=== PATIENT | male | born 1995 | race African-American/Black ===

== ENCOUNTER 2025-04-07 08:04 | Emergency (ER) | payer OTHER, SELFPAY ==
--- NOTE | 2025-04-07 08:08 | ED_ITS ---
HPI - Wound/Laceration General Chief Complaint: Wound/Laceration Stated Complaint: FINGER LACERATION Time Seen by Provider: 04/07/25 08:08 Source: patient Mode of arrival: ambulatory Limitations: no limitations History of Present Illness HPI narrative: Gennaro is a 29-year-old male patient presenting to the clinic today with complaints of a finger laceration. He reports he cut his finger with a knife last night around 8:00 p.m. when cooking dinner. States he cut through the left index finger fingernail. Bleeding is controlled. He applied Band-Aid and antibiotic ointment last night. Tetanus is unknown. Related Data Allergies Allergy/AdvReac Type Severity Reaction Status Date / Time No Known Allergies Allergy Verified 04/07/25 08:14 Review of Systems Review of Systems: Pertinent positives per HPI. Patient denies any fever, chills, rash, headache, visual changes, dizziness, cough, runny nose, sore throat, shortness of breath, chest pain, palpitations, nausea, vomiting, diarrhea, constipation, abdominal pain, or any urinary issues. PMFSH Comments At the time of my signature, I reviewed and agree with the nursing past medical, surgical, social, and family history. There is no relevant family history pertinent to the patient complaint. Exam Narrative: General: Well-developed, well nourished, in no apparent distress Head: Normocephalic, atraumatic. Cardio: Regular rate and rhythm, s1 and s2 normal, no murmur appreciated. Resp: Clear to auscultation bilaterally, no rhonchi, rales, wheezing or rubs. Integumentary: [place], warm, and dry, fingernail laceration/partial avulsion to the left index finger, bleeding controlled. No skin tissue appears to be cut, small amount of bleeding under the nail Course Course Emergency Course: Portions of this record may have been created with voice recognition software. Level of Care: Express Care Visit Vital Signs Vital signs: Vital Signs Temperature 36.4 C 04/07/25 08:15 Pulse Rate 83 04/07/25 08:15 Respiratory Rate 18 04/07/25 08:15 Blood Pressure 117/78 04/07/25 08:15 Pulse Oximetry 100 04/07/25 08:15 Temperature 36.4 C 04/07/25 08:15 Pulse Rate 83 04/07/25 08:15 Respiratory Rate 18 04/07/25 08:15 Blood Pressure 117/78 04/07/25 08:15 Pulse Oximetry 100 04/07/25 08:15 Vital signs reviewed MDM - Wound/Laceration MDM Narrative Medical decision making narrative: At the time of visit patient is resting comfortably on the exam table. Patient appears to be nontoxic. Complaints of a finger laceration. He reports he cut his finger with a knife last night around 8:00 p.m. when cooking dinner. States he cut through the left index finger fingernail. Bleeding is controlled. He applied Band-Aid and antibiotic ointment last night. Tetanus is unknown. Fingernail laceration/partial avulsion to the left index finger, bleeding controlled. No skin tissue appears to be cut, small amount of bleeding under the nail Plan: I suspect patient has a partial nail avulsion/laceration to the nail of the left index finger. This occurred over 12 hours ago. Sutures not recommended at this time. Recommend keeping the wound clean and dry and leaving the nail in place until it falls off on its own. Watch for signs and symptoms of infection. Supportive measures were discussed with the patient and they v oiced understanding discharge instructions and agrees to treatment plan. Return precautions reviewed Differential Diagnosis Differential diagnosis: Likely laceration, abscess, abrasion, avulsion of skin and other (Nail avulsion) Discharge Plan Discharge Clinical Impression: Laceration of finger of left hand with damage to nail Qualifiers: Encounter type: initial encounter Finger: index finger Foreign body presence: without foreign body Qualified Code(s): S61.311A - Laceration without foreign body of left index finger with damage to nail, initial encounter Patient Disposition: Home Condition: Stable Instructions: Antibiotic Form, Finger Laceration (ED), Nail Avulsion (ED) Additional Instructions: Tdap given in the clinic today. Keep wound clean and dry- wound is over 12 hours old- no sutures recommended at this time. May wash daily with soap and water. May trim the finger nail as it grows out. The injured part of the nail may fall off on its own when you are trimming the nail. It is important to keep the fingernail in place to allow the nail to grow outward as it should May take tylenol 1 gm every 8 hours as needed for pain May take Ibuprofen 600mg every 8 hours as needed for pain. May keep band aid over the fingernail to keep it from catching and ripping the nail off Watch for signs and symptoms of infection- redness, streaking, swelling, purulent discharge, or increase in pain. Follow up with your PCP as needed Patient Language: [place] Follow-up/Referrals: UNKNOWN,DOCTOR [Non-Staff] Time of Disposition: 08:28 Quality NIHSS Nursing Documentation ED NIHSS nursing documentation: reviewed/agree
[2025-04-07 08:15] VITALS: BP 117/78; PULSE 83; RESP 18; TEMP 36.4; O2SAT 100
--- NOTE | 2025-04-07 08:46 | PC.NURSE ---
Boostrix given, but unable to scan. Given in left deltoid.
== END 2025-04-07 08:47 | disposition home or self-care (01) ==
PROVIDERS: Emergency Provider Nurse Practitioner Family
DX: S61.311A Laceration without foreign body of left index finger with damage to nail, initial encounter (principal); W26.0XXA Contact with knife, initial encounter; Y93.G3 Activity, cooking and baking
CPT/HCPCS: 99212; G0463